=== PATIENT | female | born 1970 | race Caucasian/White ===

== ENCOUNTER 2023-12-28 09:35 | Outpatient (CLI) | payer MEDICARE, MEDICAID ==
[~2023-12-28 09:35] MED LIST: AMLO5TAB16 PO; CYCL-1 PO; HYDR-3973 PO; LOSA-415 PO; ZOLP10TA PO
== END 2023-12-28 23:59 | disposition home or self-care (01) ==
LOC: RAD 09:35
PROVIDERS: ATTEND General Practice
DX: M16.0 Bilateral primary osteoarthritis of hip (principal); M25.552 Pain in left hip
CPT/HCPCS: 73502